=== PATIENT | female | born 1980 | race Caucasian/White ===

== ENCOUNTER 2017-03-03 10:39 | Emergency (ER) | payer MEDICAID ==
[~2017-03-03] VITALS: Ht 160 cm; Wt 64.4 kg
[2017-03-03 10:45] VITALS: BP 121/65; Ht 160 cm; Wt 64.4 kg
== END 2017-03-03 12:06 | disposition home or self-care (01) ==
LOC: ED 10:39
DX: J06.9 Acute upper respiratory infection, unspecified (principal); M79.1 Myalgia; J02.9 Acute pharyngitis, unspecified; F32.9 Major depressive disorder, single episode, unspecified

== ENCOUNTER 2018-07-02 09:00 | Emergency (ER) | payer MEDICAID ==
[~2018-07-02] VITALS: Ht 160 cm; Wt 72.1 kg
[2018-07-02 09:04] VITALS: BP 134/86; Ht 160 cm; Wt 72.1 kg
== END 2018-07-02 10:59 | disposition home or self-care (01) ==
LOC: ED 09:00
DX: F41.9 Anxiety disorder, unspecified (principal); F32.9 Major depressive disorder, single episode, unspecified; E78.00 Pure hypercholesterolemia, unspecified; Z76.0 Encounter for issue of repeat prescription

== ENCOUNTER 2018-10-27 21:49 | Emergency (ER) | payer MEDICAID ==
[~2018-10-27] VITALS: Ht 160 cm; Wt 73.2 kg
[2018-10-27 21:58] VITALS: Ht 160 cm; Wt 73.2 kg
[2018-10-27 23:25] VITALS: BP 130/68
== END 2018-10-27 23:25 | disposition home or self-care (01) ==
LOC: ED 21:49
DX: J06.9 Acute upper respiratory infection, unspecified (principal); F41.9 Anxiety disorder, unspecified; F32.9 Major depressive disorder, single episode, unspecified